=== PATIENT | female | born 1995 | race Caucasian/White ===

== ENCOUNTER 2019-09-16 11:04 | Emergency (ER) | payer SELFPAY ==
--- NOTE | 2019-09-16 11:58 | UC ---
Throat Pain/Nasal Celio HPI - HPI Summary HPI Summary: Patient is a 24yo female presenting with sore throat, headache, chills, and b/l ear pain since yesterday. Patient denies fever. Denies coughing. Denies nasal congestion. Patient states she is concerned for strep throat. Denies taking anything for symptom relief. - History of Current Complaint Chief Complaint: UCRespiratory Stated Complaint: THROAT COMPLAINT Hx Obtained From: Patient Hx Last Menstrual Period: 08/01/19 Severity: Moderate Pain Intensity: 5 Pain Scale Used: 0-10 Numeric - Allergies/Home Medications Allergies/Adverse Reactions: Allergies Allergy/AdvReac Type Severity Reaction Status Date / Time No Known Allergies Allergy Verified 09/16/19 11:40 PMH/Surg Hx/FS Hx/Imm Hx Previously Healthy: Yes - Surgical History Surgical History: None - Family History Known Family History: Positive: Non-Contributory - Social History Alcohol Use: Occasionally Substance Use Type: None Smoking Status (MU): Never Smoked Tobacco Review of Systems All Other Systems Reviewed And Are Negative: Yes Constitutional: Positive: Chills. Negative: Fever, Fatigue ENT: Positive: Sore Throat, Ear Ache - b/l. Negative: Nasal Discharge, Sinus Congestion Respiratory: Positive: Negative. Negative: Cough Cardiovascular: Positive: Negative Gastrointestinal: Positive: Negative. Negative: Vomiting, Nausea Musculoskeletal: Positive: Negative Neurological: Positive: Headache Physical Exam Triage Information Reviewed: Yes Appearance: Well-Appearing, No Pain Distress, Well-Nourished Vital Signs: Initial Vital Signs Temp 98.3 F 09/16/19 11:39 Pulse 78 09/16/19 11:39 Resp 16 09/16/19 11:39 BP 142/66 09/16/19 11:39 Pulse Ox 100 09/16/19 11:39 Lab Results 09/16/19 Range/Units 11:50 Group A Strep Rapid Positive A (Negative) Vital Signs Reviewed: Yes Eyes: Positive: Conjunctiva Clear ENT: Positive: Hearing grossly normal, Pharyngeal erythema, TMs normal, Tonsillar swelling, Uvula midline. Negative: Nasal congestion, Nasal drainage, Tonsillar exudate Neck exam: Normal Neck: Positive: Supple, Nontender, No Lymphadenopathy Respiratory Exam: Normal Respiratory: Positive: Lungs clear, Normal breath sounds, No respiratory distress, No accessory muscle use Cardiovascular Exam: Normal Cardiovascular: Positive: RRR Neurological: Positive: Alert Psychological: Positive: Age Appropriate Behavior Skin Exam: Normal Throat Pain/Nasal Course/Dx - Course Course Of Treatment: Discussed positive rapid strep and treated with penicillin vk. Instructed to continue with symptomatic treatment and follow up if symptoms do not resolve within 10 days. Patient voiced understanding and agreed with treatment plan. - Differential Dx/Diagnosis Differential Diagnosis/HQI/PQRI: Tonsillitis Provider Diagnosis: Strep pharyngitis Discharge ED - Sign-Out/Discharge Documenting (check all that apply): Patient Departure All imaging exams completed and their final reports reviewed: No Studies - Discharge Plan Condition: Stable Disposition: HOME Prescriptions: Fluconazole 150 MG TAB* [Diflucan 150 MG TAB*] 150 mg PO ONCE PRN #1 tablet PRN Reason: Itching Penicillin VK 500 MG TAB(NF) [Penicillin VK 500 mg Tab] 500 mg PO BID #20 tab Patient Education Materials: Strep Throat (ED) Forms: *Work Release Referrals: [facility] [Outside] - If Needed Additional Instructions: As discussed, you tested positive for strep throat today. Take penicillin as prescribed for the treatment of strep throat. You may take ibuprofen and/or tylenol as directed for fever and pain relief. You may use over the counter throat sprays or lozenges for symptomatic relief. Get plenty of rest and fluids. Follow up with your primary care provider or the [facility] listed below if your symptoms do not resolve within 10 days. - Billing Disposition and Condition Condition: STABLE Disposition: Home
== END 2019-09-16 12:21 | disposition home or self-care (01) ==
LOC: UCCORT 11:04
DX: J02.0 Streptococcal pharyngitis (principal); R51 Headache; H92.03 Otalgia, bilateral
CPT/HCPCS: 87651; 99202; G0463

== ENCOUNTER 2019-12-02 12:28 | Emergency (ER) | payer BC ==
[2019-12-02 15:37] VITALS: BP 137/68
--- NOTE | 2019-12-02 15:44 | UC ---
Ear Complaint HPI - HPI Summary HPI Summary: 24-year-old female presents with complaints of 1 month history of right ear fullness. States over the past 2 days has started getting some pain and fullness in both ears. Denies fever, chills, ear drainage, loss of hearing, tinnitus, vertigo, nasal congestion, runny nose, sore throat, or cough. - History of Current Complaint Chief Complaint: UCEar Stated Complaint: RT EAR CONCERN Time Seen by Provider: 12/02/19 15:36 Hx Obtained From: Patient Hx Last Menstrual Period: 11/29/19 Pain Intensity: 4 - Allergies/Home Medications Allergies/Adverse Reactions: Allergies Allergy/AdvReac Type Severity Reaction Status Date / Time No Known Allergies Allergy Verified 12/02/19 15:37 Home Medications: Home Medications Fluticasone NASAL SPRAY 50MCG* [Flonase NASAL SPRAY 50MCG*] 2 spray BOTH NARES DAILY #1 btl 12/02/19 [Rx] PMH/Surg Hx/FS Hx/Imm Hx Previously Healthy: Yes - Denies significant PMH - Surgical History Surgical History: None - Family History Known Family History: Negative: Respiratory Disease - Social History Occupation: Employed Full-time Lives: With Family Alcohol Use: Occasionally Substance Use Type: None Smoking Status (MU): Never Smoked Tobacco Review of Systems All Other Systems Reviewed And Are Negative: Yes Constitutional: Negative: Fever, Chills Eyes: Negative: Drainage, Eye Redness ENT: Positive: Ear Ache. Negative: Sore Throat, Nasal Discharge, Sinus Congestion, Sinus Pain/Tenderness Respiratory: Negative: Cough Cardiovascular: Positive: Negative Gastrointestinal: Positive: Negative Genitourinary: Positive: Negative Musculoskeletal: Positive: Negative Neurological/Mental Status: Positive: Negative Is Patient Immunocompromised?: No Physical Exam - Summary Physical Exam Summary: GENERAL APPEARANCE: Well developed, well nourished, alert and cooperative, and appears to be in no acute distress. EYES: Conjunctiva clear. No drainage. EARS: External auditory canals clear, bilateral TMs dull with air bubbles note, hearing grossly intact. NOSE: No nasal discharge. THROAT: Pharynx normal. No tonsilar inflammation, swelling, exudate, or lesions. Uvula midline. NECK: Neck supple, non-tender without lymphadenopathy. CARDIAC: Normal S1 and S2. No S3, S4 or murmurs. Rhythm is regular. There is no peripheral edema, cyanosis or pallor. Extremities are warm and well perfused. Capillary refill is less than 2 seconds. Peripheral pulses intact. LUNGS: Clear to auscultation without rales, rhonchi, wheezing or diminished breath sounds. ABDOMEN: Positive bowel sounds. Soft, nondistended, nontender. No guarding or rebound. No masses or hepatosplenomegally. MUSKULOSKELETAL: ROM intact to all extremities. No joint erythema or tenderness. Normal muscular development. Normal gait. SKIN: Skin normal color, texture and turgor with no lesions or eruptions. Triage Information Reviewed: Yes Vital Signs: Initial Vital Signs Temp 97.4 F 12/02/19 15:34 Pulse 77 12/02/19 15:34 Resp 16 12/02/19 15:34 BP 137/68 12/02/19 15:34 Pulse Ox 100 12/02/19 15:34 Vital Signs Reviewed: Yes Ear Complaint Course/Dx - Course Course Of Treatment: 24-year-old female presents with complaints of 1 month history of right ear fullness. States over the past 2 days has started getting some pain and fullness in both ears. Denies fever, chills, ear drainage, loss of hearing, tinnitus, vertigo, nasal congestion, runny nose, sore throat, or cough. Afebrile. Vital signs stable. Patient had bilaterally dull TMs with air bubbles present, no erythema, and remainder of exam was unremarkable. Discussed with patient that her history and exam were consistent with a serous otitis likely due to eustachian tube dysfunction recommending that she start on fluticasone nasal spray twice daily. She is to follow-up with ENT in 1 week if symptoms are not improving. Anticipatory guidance and warning symptoms reviewed with the patient. Verbalizes understanding and agrees with plan of care. - Differential Dx/Diagnosis Differential Diagnosis/HQI/PQRI: Cerumen Impaction, Otitis Externa, Otitis Media , Perforated TM, URI Provider Diagnosis: Acute serous otitis media Discharge ED - Sign-Out/Discharge Documenting (check all that apply): Patient Departure All imaging exams completed and their final reports reviewed: No Studies - Discharge Plan Condition: Stable Disposition: HOME Prescriptions: Fluticasone NASAL SPRAY 50MCG* [Flonase NASAL SPRAY 50MCG*] 2 spray BOTH NARES DAILY #1 btl Patient Education Materials: Serous Otitis Media (ED) Referrals: No Primary Care Phys,[facility] [Primary Care Provider] - [facility] [Outside] Additional Instructions: There was no evidence of an ear infection on your exam however he did appear to have a condition called serous otitis which is caused by the some eustachian tube dysfunction. Start fluticasone nasal spray 2 sprays each nostril once daily for at least 2 weeks. Use an [id number] pain medication such as acetaminophen (Tylenol) or ibuprofen (Advil, Motrin) according directions as needed for pain. Follow-up with the ears, nose, throat specialist in 7 days if symptoms are not improving. Call [phone] to schedule an appointment in our [place] office. Seek immediate medical attention if you develop fever greater than 100.5 F, have severe pain that is not managed with [id number] pain medications, drainage or bleeding from the ear, loss of hearing, or any worsening of symptoms. - Billing Disposition and Condition Condition: STABLE Disposition: Home
== END 2019-12-02 16:01 | disposition home or self-care (01) ==
LOC: UCCORT 12:28
DX: H65.01 Acute serous otitis media, right ear (principal)
CPT/HCPCS: 99212; G0463